=== PATIENT | female | born 1975 | race Caucasian/White ===

== ENCOUNTER 2018-05-15 02:30 | Emergency (ER) | payer BC | END 2018-05-15 02:50 | disposition left against medical advice (07) | LOC: ER 02:30 | DX: Z53.21 Procedure and treatment not carried out due to patient leaving prior to being seen by health care provider (principal) ==

== ENCOUNTER 2022-09-03 07:28 | Inpatient (IN) | payer BC, OTHER ==
[~2022-09-03] VITALS: Ht 167.6 cm; Wt 120.7 kg
--- NOTE | 2022-09-03 07:39 | NUR ---
CALLED CODE STROKE
[2022-09-03] MEDS ORDERED: IOHEXOL-350 100 ML VIAL IV ONE (07:45)
[2022-09-03] MEDS ORDERED: IV NS 0.9% 250 ML IV ONE (07:46)
[2022-09-03] MEDS ORDERED: CT SWABBABLE VALVE TRANS SET 1 EA INFUS.SET MC ONE (07:46)
--- NOTE | 2022-09-03 07:46 | NUR ---
taken to ct
--- NOTE | 2022-09-03 07:49 | NUR ---
CALLED [facility] [phone] WILL BE [place] [facility]
--- NOTE | 2022-09-03 07:50 | NUR ---
to CT scan
[2022-09-03 07:55] LABS: BASOPHILS # (AUTO) 0.1 K/uL (0.0-0.2); EOSINOPHILS % (AUTO) 3.2 % (0.0-6.0); HEMATOCRIT 36 % (33-45); HEMOGLOBIN 10.8 g/dL (11.5-14.8); LYMPHOCYTES # (AUTO) 1.6 K/uL (0.8-4.8); LYMPHOCYTES % (AUTO) 28.7 % (20.0-44.0); MEAN CORPUSCULAR HGB CONC 31 g/dl (31.0-36.0); MEAN CORPUSCULAR VOLUME 59 fL (82-100); MONOCYTES # (AUTO) 0.5 K/uL (0.1-1.30); MONOCYTES % (AUTO) 9.6 % (2.0-12.0); NEUTROPHILS # (AUTO) 3.2 K/uL (1.8-8.9); NEUTROPHILS % (AUTO) 57.5 % (43.0-81.0); PLATELET COUNT (AUTO) 300 K/uL (150-450); RED BLOOD CELL COUNT(AUTO) 6.05 MIL/uL (4.0-5.2); WHITE BLOOD COUNT (AUTO) 5.5 K/uL (4.3-11.0)
--- NOTE | 2022-09-03 07:55 | NUR ---
PT A/Ox4, C/O BLURRY VISION , AND KANDY ERYEZ MD AT THE BEDSIDE
--- NOTE | 2022-09-03 07:57 | NUR ---
RETURNED FROM RADIOLOGY
[2022-09-03 07:58] LABS: CALCIUM, SERUM 8.8 mg/dL (8.5-10.1); CARBON DIOXIDE 25 mmol/L (21-32); CHLORIDE 102 mmol/L (98-107); CREATININE 0.9 mg/dL (0.6-1.3); GLUCOSE 153 mg/dL (74-106); SODIUM SERUM 136 mmol/L (136-145); UREA NITROGEN, BLOOD 15 mg/dL (7-18)
--- NOTE | 2022-09-03 08:02 | NUR ---
TECH AT BEDSIDE FOR EKG
--- NOTE | 2022-09-03 08:14 | NUR ---
MOVE SHEET SUBMITTED.
[2022-09-03 08:19] LABS: BAND % (MANUAL) 4 % (0.0-5.0); LYMPHOCYTES % (MANUAL) 22 % (16-48); NEUTROPHILS % (MANUAL) 63 (42-76)
[2022-09-03 08:20] LABS: BASOPHILS % (MANUAL) 0 % (0.0-2.0); EOSINOPHILS % (MANUAL) 2 % (0-4); MONOCYTES % (MANUAL) 9 % (0-11.0)
--- NOTE | 2022-09-03 08:20 | NUR ---
DR. WATSON CONSULT VIA TELE NEURO
--- NOTE | 2022-09-03 08:21 | NUR ---
COVID SWAB COLLECTED AND SENT TO LAB
[2022-09-03] MEDS ORDERED: AMLO10TA4 PO (08:29)
[2022-09-03] MEDS ORDERED: ALBU18HF2 INH (08:29)
[2022-09-03] MEDS ORDERED: LOSA100T31 PO (08:29)
--- NOTE | 2022-09-03 08:34 | NUR ---
DR. WATSON SPEAKING WITH DR. HELMS OVER THE PHONE.
[2022-09-03] MEDS ORDERED: KETOROLAC TROMETHAMINE 15 MG/ML VIAL ONE (08:57)
[2022-09-03] MEDS ORDERED: MIDAZOLAM HCL 2 MG/2ML VIAL ONE (08:57)
[2022-09-03] MEDS ORDERED: SUMATRIPTAN SUCCINATE 6 MG/0.5 ML VIAL SQ ONE ×2 (08:57→09:00)
[2022-09-03] MEDS ORDERED: METOCLOPRAMIDE HCL 10 MG/2 ML VIAL ONE (08:58)
[2022-09-03] MEDS ORDERED: KETOROLAC TROMETHAMINE INJ 30 MG/ML VIAL IV ONE (09:00)
[2022-09-03] MEDS ORDERED: METOCLOPRAMIDE HCL 10 MG/2 ML VIAL IV ONE (09:00)
[2022-09-03] MEDS ORDERED: MIDAZOLAM HCL 2 MG/2ML VIAL IV ONE (09:00)
--- NOTE | 2022-09-03 09:42 | NUR ---
DR. KIM SPEAKING WITH DR. HELMS.
--- NOTE | 2022-09-03 09:55 | NUR ---
ROOM 314-2
--- NOTE | 2022-09-03 09:55 | NUR ---
GOT BED ASSIGNMENT ROOM 314-2 ADMITTING INFORMED.
--- NOTE | 2022-09-03 10:02 | NUR ---
REPORT GIVEN TO ISIDORO DAY
[2022-09-03 10:30] VITALS: BP 140/97
--- NOTE | 2022-09-03 10:33 | NUR ---
COO & CO FOUNDERENRICHMENT ASSISTANT NOTES RECEIVED PATIENT FROM ER ENDORSED BY BARB RENDON VIA STRETCHER. PATIENT IS AWAKE AND A/O X4. ON ROOM AIR TOLERATING WELL. NO SOB NOTED. NOT IN DISTRESS. WITH NO COMPLAINTS OF PAIN OR DISCOMFORT AT THIS TIME. SKIN IS INTACT. WITH IV ACCESS AT THE LEFT AC G18 AND AT THE RIGHT AC G20, BOTH SALINE LOCKED, PATENT AND INTACT. ON TELE MONITOR CURRENTLY READING SINUS RHYTHM AT 65BPM. AMBULATORY WITH ASSIST. MADE COMFORTABLE ON BED. SAFETY MEASURES IN PLACED. CALL LIGHT WITHIN REACH. BED ON LOWEST LOCKED POSITION, SIDE RAILS UP X2. WILL CONTINUE TO MONITOR.
--- NOTE | 2022-09-03 10:33 | NUR ---
PT TRANSFERRED TO [facility]2 VIA [facility] ACLS PROTOCOL. WARM HANDOFF GIVEN TO BARB SANTO
[2022-09-03 11:52] VITALS: BP 140/97
[2022-09-03 12:00] LABS: CREATININE 0.8 mg/dL (0.6-1.3); POTASSIUM 3.7 mmol/L (3.5-5.1)
[2022-09-03] MEDS ORDERED: ALBUTEROL FS 2.5 MG/3 ML VIAL.NEB NEB PRN (12:00)
[2022-09-03] MEDS: AMLODIPINE BESYLATE 10 MG TABLET PO SCH (12:00)
[2022-09-03] MEDS ORDERED: BLOOD SUGAR DIAGNOSTIC 1 EACH STRIP IN SCH ×3 (12:00)
[2022-09-03 12:07] LABS: ALBUMIN 3.3 g/dL (3.4-5.0); BILIRUBIN,TOTAL 0.5 mg/dL (0.2-1.0); TOTAL PROTEIN, SERUM 7.2 g/dL (6.4-8.2)
[2022-09-03] MEDS: BLOOD SUGAR DIAGNOSTIC 1 EACH STRIP IN SCH ×3 (12:12→21:43)
[2022-09-03 12:15] LABS: THYROID STIMULATING HORMONE 1.027 uIU/mL (0.358-3.74)
[2022-09-03 12:16] LABS: BASOPHILS % (AUTO) 0.9 % (0.0-2.0); EOSINOPHILS % (AUTO) 3.2 % (0.0-6.0); HEMATOCRIT 32 % (33-45); HEMOGLOBIN 9.9 g/dL (11.5-14.8); LYMPHOCYTES # (AUTO) 1.3 K/uL (0.8-4.8); LYMPHOCYTES % (AUTO) 28.8 % (20.0-44.0); MEAN CORPUSCULAR HGB CONC 31 g/dl (31.0-36.0); MEAN CORPUSCULAR VOLUME 58 fL (82-100); MONOCYTES # (AUTO) 0.4 K/uL (0.1-1.30); MONOCYTES % (AUTO) 9.5 % (2.0-12.0); NEUTROPHILS # (AUTO) 2.7 K/uL (1.8-8.9); NEUTROPHILS % (AUTO) 57.6 % (43.0-81.0); PLATELET COUNT (AUTO) 274 K/uL (150-450); RED BLOOD CELL COUNT(AUTO) 5.53 MIL/uL (4.0-5.2); WHITE BLOOD COUNT (AUTO) 4.7 K/uL (4.3-11.0)
[2022-09-03 16:13] VITALS: BP 143/79
--- NOTE | 2022-09-03 16:20 | NUR ---
SS consult requested for stroke. SW will follow up at a later time.
--- NOTE | 2022-09-03 18:39 | NUR ---
MOLASSES FEED MIXER CLOSING NOTES PATIENT RESTING ON BED AND A/O X4. ON ROOM AIR TOLERATING WELL. NO SOB NOTED. NOT IN DISTRESS. WITH NO COMPLAINTS OF PAIN OR DISCOMFORT AT THIS TIME. WITH IV ACCESS AT THE RIGHT AC G20 SALINE LOCKED, PATENT AND INTACT. ON TELE MONITOR CURRENTLY READING SINUS RHYTHM AT 85BPM. DUE MEDS GIVEN. SAFETY MEASURES IN PLACED. CALL LIGHT WITHIN REACH. BED ON LOWEST LOCKED POSITION, SIDE RAILS UP X2. WILL ENDORSE TO NEXT SHIFT FOR LEX.
--- NOTE | 2022-09-03 19:45 | NUR ---
TELE WIRER MAINTENANCE INITIAL NOTES RECEIVED PT IN BED ON SITTING POSITION WITH SIDE RAILS X2 UP TALKING TO SOME ON HER CELLPHONE. DENIES ANY PAIN OR ANY DISCOMFORT. HEPLOCK PATENT AND INTACT. TELE SINUS RHYTHM 72 PER MONITOR. KEPT HER WARM AND COMFORTABLE AT ALL TIMES. WILL CONTINUE MONITORING.
[2022-09-03 20:00] VITALS: BP 152/96
--- NOTE | 2022-09-03 21:54 | NUR ---
TELE MENTAL HEALTH ASSISTANT NOTES BLOOD SUGAR CHECKED DONE 95 NO COVERAGES AT THIS TIME. NO SIGNS OF HYPO GLYCEMIA NOTED. SANDWICH SERVED AND JUICE PER PT REQUESTED. WILL CONTINUE MONITORING. PLACE CALL LIGHT AT REACH.
[2022-09-04] VITALS: BP_SYST 136; BP_DIAS 62; BP_DIAS 76
[2022-09-04 04:00] VITALS: BP 131/78
[2022-09-04 04:43] VITALS: BP 131/78
[2022-09-04] MEDS: BLOOD SUGAR DIAGNOSTIC 1 EACH STRIP IN SCH ×4 (06:49→22:13)
--- NOTE | 2022-09-04 07:22 | NUR ---
TELE DIESEL ENGINE ASSEMBLER CLOSING NOTES Pt seen in bed still sleeping but arouse easily, Blood sugar checked done 103, no coverage as ordered. Stable throughout out the night. Tele Sinus Rhythm heart mildred 67 per monitor. Denies any pain or any discomfort. kept her warm and comfortable at all times. Endorse to am nurse for continuity of care. place call light at reach.
[2022-09-04 07:23] LABS: BASOPHILS % (AUTO) 0.7 % (0.0-2.0); EOSINOPHILS % (AUTO) 3.6 % (0.0-6.0); HEMATOCRIT 32 % (33-45); HEMOGLOBIN 9.7 g/dL (11.5-14.8); LYMPHOCYTES # (AUTO) 1.3 K/uL (0.8-4.8); LYMPHOCYTES % (AUTO) 29.3 % (20.0-44.0); MEAN CORPUSCULAR HGB CONC 31 g/dl (31.0-36.0); MEAN CORPUSCULAR VOLUME 60 fL (82-100); MONOCYTES # (AUTO) 0.5 K/uL (0.1-1.30); MONOCYTES % (AUTO) 11.1 % (2.0-12.0); NEUTROPHILS # (AUTO) 2.4 K/uL (1.8-8.9); NEUTROPHILS % (AUTO) 55.3 % (43.0-81.0); PLATELET COUNT (AUTO) 242 K/uL (150-450); RED BLOOD CELL COUNT(AUTO) 5.34 MIL/uL (4.0-5.2); WHITE BLOOD COUNT (AUTO) 4.3 K/uL (4.3-11.0)
[2022-09-04 07:25] LABS: CALCIUM, SERUM 8.5 mg/dL (8.5-10.1); CREATININE 0.7 mg/dL (0.6-1.3); POTASSIUM 3.6 mmol/L (3.5-5.1)
--- NOTE | 2022-09-04 07:32 | NUR ---
DIRECTOR OF CONTENT MARKETING OPENING NOTE Received patient awake, alert, oriented x 4 without any neuro deficits after doing head-to-toe neuro check. Tele monitor showing SR with HR = 69. Patietn reported having slept intermittently during the night. Vital signs stable, afebrile. Patient has efpd-no-vavhl extremities with positive pulses in all four extremities. Patient denies dizziness, denies blurred vision, denies double vision. Denies having pain. Bed brake locked and in lowest position with two bed siderails up. Call light/montoya within patinet's reach and bedside table within reach. Will continue to care for and monitor per MD POC.
[2022-09-04 08:00] VITALS: BP 124/81
[2022-09-04] MEDS: LOSARTAN POTASSIUM 50 MG TABLET PO SCH (08:23)
[2022-09-04] MEDS: AMLODIPINE BESYLATE 10 MG TABLET PO SCH (08:23)
--- NOTE | 2022-09-04 09:45 | NUR ---
ORTHOSTATIC VITAL SIGNS Patient's O2 Sat = 94% on room air. Blood pressures before anti-hypertensive medication: supine = 152/80; sitting = 154/96; and standing = 176/100 at 9:00 AM. Post taking antihypertensive medication at 9:35 AM vitals: supine BP = 140/82 & HR = 78; sitting BP = 145/89 & HR = 81; and standing BP = 146/82 & HR = 91. After exercise with physical therapist walking, BP = 135/74 sitting upright on edge of bed.
[2022-09-04] MEDS: METFORMIN 500 MG TABLET PO SCH ×2 (09:56→17:10)
[2022-09-04 10:22] LABS: IRON, SERUM 23 ug/dl (50-175); TOTAL IRON BINDING CAPACITY 327 ug/dl (250-450)
[2022-09-04 16:00] VITALS: BP 129/75
--- NOTE | 2022-09-04 16:05 | NUR ---
ASSESSMENT OF PATIENT AMBULATION Patient walked with steady gait four times the circumference of the [address] [place] [address] Med/Surg /Tele Unit. Patient noted brief instances of mild dizziness lasting less than one minute during walk. Oxygen saturation right after walking, sitting on edge of bed was 98% on room air. No shortness of breath observed or felt by patient nor observed by nurse. Will contnue to care for and monitor patient per POC. Addendum: 09/04/22 at 1641 by YULI SELLERS RN Tele monitor showed NSR , HR = 92 bpm after walking.
--- NOTE | 2022-09-04 19:17 | NUR ---
INVESTMENT UNDERWRITER CLOSING NOTE PATIENT RESTING ON BED AND A/O X4. ON ROOM AIR TOLERATING WELL. NO SOB NOTED. NOT IN DISTRESS. WITH NO COMPLAINTS OF PAIN OR DISCOMFORT AT THIS TIME. WITH IV ACCESS AT THE RIGHT AC G20 SALINE LOCKED, PATENT AND INTACT. ON TELE MONITOR CURRENTLY READING SINUS RHYTHM WITH HR OF 77 BPM. ALL DUE MEDS GIVEN. SAFETY MEASURES IN PLACE. CALL LIGHT WITHIN REACH. BED ON LOWEST LOCKED POSITION, SIDE RAILS UP X2. WILL ENDORSE TO NEXT SHIFT FOR LEX.
--- NOTE | 2022-09-04 19:48 | NUR ---
received in bed alert asnd orientated x4 watching tv smiling speech clear moving all extremities reviewed the call light with the patient
[2022-09-04 20:00] VITALS: BP 125/65
[2022-09-05] VITALS: BP 109/55
[2022-09-05 04:00] VITALS: BP 140/74
--- NOTE | 2022-09-05 05:07 | NUR ---
CLOSING NOTES; ALERT AND ORIENTATED X4 SMILING WHEN EVER NURSE IS AT HERE BEDSIDE AND POLITE NIHSS SCALE THIS 12 HOURS 0 STRONG HAND CORN SHELLER OPERATOR STEADY GAIT DIZZINESS LESS AMBULATES TO THE BATHROOM HS SNACK ENJOYED 100 %
[2022-09-05] MEDS: BLOOD SUGAR DIAGNOSTIC 1 EACH STRIP IN SCH ×2 (06:06→12:20)
--- NOTE | 2022-09-05 07:30 | NUR ---
PT RECEIVED RESTING COMFORTABLY IN BED. NO S/S OR C/O PAIN OR DISTRESS NOTED. SIDE RAILS UP X2, CALL LIGHT LEFT WITHIN REACH. WILL CONTINUE PLAN OF CARE.
[2022-09-05] MEDS: METFORMIN 500 MG TABLET PO SCH (08:22)
[2022-09-05 08:23] VITALS: BP 132/73
[2022-09-05] MEDS: LOSARTAN POTASSIUM 50 MG TABLET PO SCH (08:23)
[2022-09-05] MEDS: AMLODIPINE BESYLATE 10 MG TABLET PO SCH (08:23)
[2022-09-05] MEDS ORDERED: FERR-56 PO (11:10)
[2022-09-05] MEDS ORDERED: METF-440 PO (11:10)
[2022-09-05 12:21] LABS: OCCULT BLOOD STOOL NEGATIVE (NEGATIVE)
--- NOTE | 2022-09-05 13:16 | NUR ---
DISCHARGE INSTRUCTIONS GIVEN ORDERED. ENCOURAGED TO FOLLOW UP WITH PMD INSTRUCTED. ALL QUESTIONS AND CONCERNS ADDRESSED. PATIENT VERBALIZED UNDERSTANDING. MEDICATION RECONCILIATION FORM COMPLETED AND COPY GIVEN TO PATIENT. IV REMOVED WITH CATHETER INTACT, PRESSURE DRESSING APPLIED. TELEMETRY UNIT RETURNED TO STATION. PATIENT TAKEN TO VEHICLE WITH ALL PERSONAL BELONGINGS, ACCOMPANIED BY STAFF AND FAMILY MEMBER. NO DISTRESS NOTED AT TIME OF DEPARTURE.
== END 2022-09-05 13:00 | disposition home or self-care (01) | DRG 149 ==
LOC: ER 07:51 → TELE 10:13
PROVIDERS: ADMIT Internal Medicine; ATTEND Internal Medicine
DX: H81.10 Benign paroxysmal vertigo, unspecified ear (principal); Z68.41 Body mass index [BMI] 40.0-44.9, adult; E44.0 Moderate protein-calorie malnutrition; Z20.822 Contact with and (suspected) exposure to COVID-19; R29.700 NIHSS score 0; I10 Essential (primary) hypertension; Z98.84 Bariatric surgery status; H53.2 Diplopia; Z79.899 Other long term (current) drug therapy; Z79.51 Long term (current) use of inhaled steroids; E66.01 Morbid (severe) obesity due to excess calories; E11.9 Type 2 diabetes mellitus without complications; D64.9 Anemia, unspecified; H81.399 Other peripheral vertigo, unspecified ear; J45.909 Unspecified asthma, uncomplicated
CPT/HCPCS: 36415; 70450-TC; 70496-TC; 70498-TC; 70551-TC; 71045-TC; 80048-TC; 80053-TC; 80061-TC; 82272-TC; 82962-TC; 83540-TC; 83880; 84443-TC; 84484-TC; 85025-TC; 85652-TC; 85730-TC; 87081-TC; 93307-TC; 93880-TC; 97116-TC; 97530-TC; C9803; G0378; J1885; J2250; J2765; J3030; J7030; J7050; Q9967